=== PATIENT | male | born 1970 | race Caucasian/White ===

== ENCOUNTER → 2020-12-16 | Day surgery (SDC) | payer BC ==
[~2020-12-16] MED LIST: ACETAMINOPHEN-1 EAC4 PO; BUPIVACAINE HCL 0.5% INJ 30 ML VIAL INJ ONE; MUPIROCIN 2% OINT 22 GM TUBE ONE; SODIUM CHLORIDE 0.9% 50ML 50 ML ONE; TESTOSTERO200 MG/1 M INJ; VALTREX500 MG PO
[2020-12-16 08:15] VITALS: BP 111/65
== END | disposition home or self-care (01) ==
LOC: OR 06:26
PROVIDERS: ATTEND Plastic Surgery
DX: G56.02 Carpal tunnel syndrome, left upper limb (principal); M65.832 Other synovitis and tenosynovitis, left forearm; Z01.810 Encounter for preprocedural cardiovascular examination; Z01.812 Encounter for preprocedural laboratory examination; Z20.822 Contact with and (suspected) exposure to COVID-19
CPT/HCPCS: 25115; 93005; J0690; U0002